=== PATIENT | male | born 1965 | race African-American/Black ===

== ENCOUNTER 2019-10-18 08:00 | Emergency (ER) | payer OTHER ==
[~2019-10-18] VITALS: Ht 175.3 cm; Wt 86.2 kg
--- NOTE | 2019-10-18 08:01 | Emergency Room Report ---
History of Present Illness General Chief Complaint: Multiple Trauma/Fall Source: Patient, EMS Present Illness HPI Patient is a 54-year-old male brought in by EMS status post fall. Patient states that he was sitting on the back of a truck collecting items and the step broke he fell onto his lower back at approximately 1 mph. He denies any head trauma or loss of consciousness. He denies any chest pain or shortness of breath. Patient complains of lower back pain. Patient is in spinal precautions. Patient states that he is not on any blood thinners or aspirin. Allergies: Coded Allergies: No Known Allergies (Unverified , 10/18/19) COVID-19 Screening Contact w/high risk pt: No Recent Travel to affected area: No Experienced COVID-19 symptoms?: No COVID-19 Testing performed TYPER: No Patient History Reviewed Nursing Documentation: PMH: Agreed; PSxH: Agreed Review of Systems All Other Systems: negative except mentioned in HPI Physical Exam Vital Signs Date Time Temp Pulse Resp B/P (MAP) Pulse Ox O2 Delivery O2 Flow Rate FiO2 10/18/19 07:53 88 18 128/80 (96) 99 Room Air Sp02 EP Interpretation: reviewed, normal General Appearance: no apparent distress, alert, GCS 15, non-toxic Head: normocephalic, atraumatic Eyes: bilateral eye normal inspection, bilateral eye PERRL ENT: hearing grossly normal, normal pharynx, no angioedema, normal voice Neck: full range of motion, supple/symm/no masses, other - C-collar in place, no midline tenderness cleared from c-collar by me Respiratory: chest non-tender, lungs clear, normal breath sounds, speaking full sentences Cardiovascular #1: regular rate, rhythm, no edema Gastrointestinal: normal bowel sounds, non tender, soft, non-distended, no guarding, no rebound Rectal: deferred, other - Able to squeeze butt cheeks together with no saddle anesthesia Genitourinary: normal inspection, no CVA tenderness Musculoskeletal: normal range of motion, moves extm spontaneously, other - Lower lumbar tenderness to palpation, no step-offs Neurologic: motor strength/tone normal, 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 Patient CTs demonstrate no acute fractures. Patient able to ambulate without difficulty. Patient complaining of lower back pain. Patient has no lower extremity weakness or saddle anesthesia. Patient given Toradol, Percocet as well as Robaxin. Patient given prescription for tramadol and Robaxin. After discussing risks and benefits of further diagnostics, treatment plans, as well as indications for and risks of admission , the patient is agreeable to being discharged home. I have explained that their evaluation and treatment in the emergency department today is an important step towards them achieving better health but that their evaluation today is not intended to replace further evaluation and treatment by a physician in their local clinic. I have explained that while the current findings suggest no immediate life threatening emergency they will require further evaluation and treatment by a physician of their choice in their area. They understand that it will be necessary for them to review the final reports of their ED visit with their clinic physician. We have reviewed indications for return to the Emergency Department. I have explained that additional time may need to pass and/or additional testing as an outpatient may be necessary before a definitive diagnosis can be made. They tell me they are willing to follow up as instructed within the timeframe I recommend. They appear to understand what we discussed. Additionally they understand that if they are unable to be seen by an outpatient physician they are welcome, and in fact should, return to the Emergency Department for a repeat evaluation. The patient is stable at time of discharge. Last Vital Signs Date Time Temp Pulse Resp B/P (MAP) Pulse Ox O2 Delivery O2 Flow Rate FiO2 10/18/19 07:53 88 18 128/80 (96) 99 Room Air Disposition: HOME, SELF-CARE Condition: Stable Scripts Tramadol Hcl* (ULTRAM*) 50 Mg Tablet 50 MG ORAL Q6H PRN for For Pain, #20 TAB 0 Refills Prov: Adelia Simmons M.D. 10/18/19 Methocarbamol* (ROBAXIN-750*) 750 Mg Tablet 750 MG PO TID, #21 TAB 0 Refills Prov: Adelia Simmons M.D. 10/18/19 Additional Instructions: The patient was provided with discharge instructions, notified to follow-up with a primary care doctor and or specialist in the next 24-48 hours, and to return to the ED if they have worsening of their symptoms. Please note that this report is being documented using DRAGON technology. This can lead to erroneous entry secondary to incorrect interpretation by the dictating instrument. Adelia Simmons M.D. Oct 18, 2019 08:01
--- NOTE | 2019-10-18 08:09 | NUR ---
ED Nurse Note: Pt BIBA for fall at work off of moving truck approx 2 feet off ground. Pt has neck pain and lower back pain /. Pt had LOC but doesn't remember if hit head. Denies numbness or tingling. Pt is alert and ox4.
--- NOTE | 2019-10-18 08:10 | NUR ---
ED Nurse Note: Pt taken to CT.
[2019-10-18 08:11] VITALS: BP 128/80
[2019-10-18] MEDS ORDERED: Ketorolac 60mg Inj IM ONE (08:15)
--- NOTE | 2019-10-18 09:11 | Diagnostic Imaging Report ---
Indication: Trauma, status post fall, lower back and pelvic pain Technique: Noncontrast spiral acquisitions obtained through the pelvis. Multiplanar reconstructions generated. Total dose length product 216 mGycm. CTDIvol(s) 6 mGy. Dose reduction achieved using automated exposure control Comparison: none Findings: There is transitional lumbosacral junction anatomy. There are degenerative changes of the lumbosacral junction. No acute fractures. No dislocations. The sacrum is intact. The joint spaces are preserved. No evidence of hip fracture. No significant soft tissue contusion demonstrated. The pelvic viscera are unremarkable. There are small bilateral inguinal hernias which contain only fat. Impression: No acute process The CT scanner at [facility] is accredited by the [employer] and the scans are performed using protocols designed to limit radiation exposure to as low as reasonably achievable to attain images of sufficient resolution adequate for diagnostic evaluation.
--- NOTE | 2019-10-18 09:29 | Diagnostic Imaging Report ---
Indications: Back pain, trauma, status post fall Technique: Spiral acquisitions obtained through the lumbar spine. Multiplanar reconstructions were generated. No IV contrast utilized. Total dose length product 511 mGycm. CTDIvol(s) 11 mGy. Dose reduction achieved using automated exposure control Comparison: none Findings: There is transitional lumbosacral anatomy, with a sacralized L5. There is posterior offset of L4 on L5. The remaining bony alignment is normal. The vertebral body heights are preserved. No acute fractures. No dislocations. There is degenerative disc narrowing at L4-5, with near complete obliteration of the disc space. The remaining disc spaces are preserved. At L1-2, there is bilateral facet arthrosis. No significant disc bulge or protrusion or spinal stenosis. At L2-3, there is broad-based posterior disc bulge. This results in mild narrowing of the spinal canal. There is also mild narrowing of the neural foramina at this level. There is bilateral degenerative facet arthrosis. At L3-4, short pedicles and circumferential annular bulge results in mild narrowing of the spinal canal. There is mild narrowing of the neural foramina. There is bilateral degenerative facet arthrosis. At L4-5, the alignment abnormality and degenerative proliferative changes result in moderate narrowing of the bilateral neural foramina. There is posterior osteophyte formation which does not significantly compromise the spinal canal. There is bilateral mild facet arthrosis. Impression: No acute bony trauma Degenerative changes as detailed on a level by level basis above. The CT scanner at [facility] is accredited by the [employer] and the scans are performed using protocols designed to limit radiation exposure to as low as reasonably achievable to attain images of sufficient resolution adequate for diagnostic evaluation.
[2019-10-18] MEDS ORDERED: TRAMADOL HCL50 MG ORAL (09:37)
[2019-10-18] MEDS ORDERED: ROBAXIN-750750 MG PO (09:37)
[2019-10-18] MEDS ORDERED: oxyCODONE HCL/Acetaminophen 5/325mg ORAL ONE (09:45)
[2019-10-18] MEDS ORDERED: Methocarbamol 500mg tab ORAL ONE (09:45)
--- NOTE | 2019-10-18 09:54 | NUR ---
ER DISCHARGE NOTE: Patient is cleared to be discharged per ERMD, pt is aox4, on room air, with stable vital signs. pt was given dc and prescription instructions, pt was able to verbalize understanding, pt id band removed. pt is able to ambulate with steady gait. pt took all belongings. Pt educated on pain meds. Pt has friend to pick him up and drive.
[2019-10-18 09:55] VITALS: BP 125/79
== END 2019-10-18 09:56 | disposition home or self-care (01) ==
LOC: EDBD 08:00 → EMR 08:42
DX: S39.012A Strain of muscle, fascia and tendon of lower back, initial encounter (principal); W19.XXXA Unspecified fall, initial encounter; Y92.9 Unspecified place or not applicable
CPT/HCPCS: 72131; 72192; 96372; 99284